=== PATIENT | male | born 1985 | race Two or more races ===

== ENCOUNTER → 2016-11-01 | Day surgery (SDC) | payer SELFPAY ==
[~2016-11-01] VITALS: Ht 157.5 cm; Wt 79.5 kg
[~2016-11-01] MED LIST: MAXITROL EYE O3.5 GM TOP
--- NOTE | ~2016-11-01 | ER ---
PATIENT'S NAME: [facility] AGE: 31 Y [address] ROOM: [place] [address] LOCATION: [facility] [place] ADMIT DATE: 11/01/2016 ER/Outpatient Report DISCHARGE DATE: FAMILY PHYSICIAN: PHYSICIAN, NO ATTENDING PHYSICIAN: PAULINO ESTEBAN TIME OF ARRIVAL: 1021 hours. TIME SEEN: 1021 hours. IDENTIFICATION: A 31-year-old male. CHIEF COMPLAINT: Left eye injury. HISTORY OF PRESENT ILLNESS: The patient is a 31-year-old male from [facility], but speaks very good Latvian, who works at [id number]. He was brought in for an unintentional injury to his left eye involving a knife that slipped at work. He lacerated his eyelids, upper and lower. He denies any vision changes. He comes in with a pressure dressing, and bleeding has been controlled, but feels like something is in his eye. PAST MEDICAL HISTORY: ALLERGIES: NO KNOWN DRUG ALLERGIES. MEDICATIONS: No current medications. MEDICAL PROBLEMS: Denies. PRIOR SURGERIES AND HOSPITALIZATIONS: No prior surgeries. No hospitalizations. IMMUNIZATIONS: Up-to-date as of 2 years ago. SOCIAL HISTORY: The patient lives in [place]. He works at [email or web address]. He has no PATIENT'S NAME: [facility] AGE: 31 Y [address] ROOM: [place] [address] LOCATION: [facility] [place] ADMIT DATE: 11/01/2016 ER/Outpatient Report DISCHARGE DATE: FAMILY PHYSICIAN: PHYSICIAN, NO ATTENDING PHYSICIAN: PAULINO ESTEBAN primary care physician. There is no tobacco, alcohol, or drug use. The patient is from [facility]. He does speak fairly good Latvian. FAMILY HISTORY: No pertinent family history. REVIEW OF SYSTEMS: All systems reviewed and negative other than what is noted in the HPI. PHYSICAL EXAMINATION: VITAL SIGNS: Height 5 feet 2 inches, weight 170 pounds, blood pressure 148/87, pulse 86, respirations 16, temperature 98.1, and saturation is 96% on room air. GENERAL: A 31-year-old male, in obvious distress. HEENT: Head: Normocephalic. Ears: TMs translucent, both ears. Eyes: Pupils equal and reactive to light and accommodation. Extraocular movements intact. Conjunctivae mildly injected on the left. Visual acuity grossly normal. He has a complicated complex laceration to his upper eyelid involving the tarsal plate, also the lower eyelid, [id number], also involving the tarsal plate. The globe at this time appears to be intact. Extraocular movements are intact, and his vision appears to be grossly normal. Nose: Mucosa pink, no lesions. Mouth: No lesions. Pharynx: Benign. NECK: Supple. No lymphadenopathy. LUNGS: Clear to auscultation. HEART: Regular rate and rhythm. EMERGENCY DEPARTMENT COURSE: The patient's pain on arrival was 4/10. An IV was initiated, and he was given fentanyl 50 mcg for pain. His tetanus is current. A CT scan of his globe was obtained, and Dr. Newsome reported back to be that his globe is intact. Soft tissue swelling anterior to the globe, but the left globe itself appears to be intact. IMPRESSION AND PLAN: Complex laceration, left eye, unintentional, involving the upper and lower eyelids with involvement of the tarsal plate. PLAN: Dr. Esteban, tapeman, evaluated the patient and planned to do operative repair in the operating room. No other injuries are identified. An IV has been initiated. Pain control has been obtained. Tetanus is current. PATIENT'S NAME: [facility] AGE: 31 Y [address] ROOM: [place] [address] LOCATION: [facility] [place] ADMIT DATE: 11/01/2016 ER/Outpatient Report DISCHARGE DATE: FAMILY PHYSICIAN: PHYSICIAN, NO ATTENDING PHYSICIAN: PAULINO ESTEBAN MD CAR/modl /[id number] d: 11/01/16 1515 t: 11/02/16 0722, OUTPATIENT REPORT
--- NOTE | ~2016-11-01 | OR ---
PATIENT'S NAME: [facility]AL[facility] AGE: 31 Y [address] ROOM: [place] [address] [place] [facility] [place] DATE: 11/01/2016 OR/Procedure Report DISCHARGE DATE: FAMILY PHYSICIAN: PHYSICIAN, ARMOND ATTENDING PHYSICIAN: PAULINO ESTEBAN SURGEON: Paulino Esteban DO PRECISION HONER: DATE OF PROCEDURE: 11/01/2016 PREOPERATIVE DIAGNOSIS: Full thickness eyelid lacerations of both upper and lower eyelids of the left eye. POSTOPERATIVE DIAGNOSIS: Full thickness eyelid lacerations of both upper and lower eyelids of the left eye. DESCRIPTION OF THE PROCEDURE: The patient was taken into the operating room where he was given general endotracheal anesthesia. Following that intimally a silk suture was placed at the upper eyelid margin and then following that the tarsal plate was reapproximated with 6-0 Vicryl as well as the subcutaneous tissue and the overlying skin on the left upper lid was closed with 6 interrupted 6-0 Vicryl sutures. The silk suture and the eyelid margin was left long and was buried underneath with some stitches in the upper lid and secured on the skin with a Steri-Strip. Same was done on the lower lid. First a nylon suture was placed to reapproximate the lid margin. It was noted that the laceration went all the way down to the periosteum. Hemostasis was obtained. Subcutaneous tissue and tarsal plate were closed with 6-0 Vicryl followed by 10 interrupted 6-0 Nylon sutures on the skin. The same long eyelid silk suture was buried in some of the inferior stitches and taped the skin with a Steri-Strip. The patient tolerated the procedure well and left the operating room in stable condition and there were no complications. PAULINO ESTEBAN DO DML/modl /[id number] d: t: 11/03/16 1121, OPERATIVE SUMMARY
== END ==
LOC: GACC 10:21 → GSDC 11:18
PROC: 08QPXZZ Repair Left Upper Eyelid, External Approach (ICD-10-PCS; principal; 2016-11-01)
PROC: 08QRXZZ Repair Left Lower Eyelid, External Approach (ICD-10-PCS; 2016-11-01)
DX: S01.112A Laceration without foreign body of left eyelid and periocular area, initial encounter (principal); W26.0XXA Contact with knife, initial encounter; Y93.89 Activity, other specified; Y92.69 Other specified industrial and construction area as the place of occurrence of the external cause; Y99.0 Civilian activity done for income or pay
CPT/HCPCS: J0690; J1100; J2250; J2405; J2765; J3010; J7030